=== PATIENT | female | born 1995 | race Caucasian/White ===

== ENCOUNTER → 2020-07-27 | Outpatient (CLI) | payer OTHER ==
[~2020-07-27] MED LIST: ALBUTEROL0.09 MG/AC IH; AMOXIL500 MG PO; ASMANEX220 MCG INH; CIPRODEX 0.3%-7.5 ML OT; DONNATAL1 TAB PO; Miralax Powder255 GM PO; OMEPRAZOLE20 MG PO; PRILOSEC20 MG PO; VICODIN 5/500 505 MG PO
== END | disposition home or self-care (01) ==
LOC: COVID19 12:58
PROVIDERS: ATTEND Internal Medicine
DX: U07.1 COVID-19 (principal)

== ENCOUNTER 2024-01-06 10:24 | Emergency (ER) | payer OTHER ==
[~2024-01-06] VITALS: Wt 106.6 kg
[2024-01-06] MEDS ORDERED: SODIUM CHLORIDE 0.9% 1,000 ML IV ONE (11:05)
[2024-01-06 11:19] LABS: BILIRUBIN Negative (Negative); BLOOD Trace-Intact (Negative); CLARITY Clear (Clear); COLOR Yellow (Yellow); GLUCOSE Negative (Negative); KETONE 3+ (Negative); LEUKO ESTERASE Negative (Negative); NITRITE Negative (Negative)
[2024-01-06 11:32] LABS: BACTERIA 1+; MUCOUS 1+
[2024-01-06 11:53] LABS: HEMATOCRIT 44.9 % (37.0-47.0); MEAN CELL VOLUME 85.5 fl (81.0-99.0); MEAN CORPUSCULAR HGB 28.2 pg (27.0-31.0); MEAN PLATELET VOLUME 12.5 fl (9.6-12.3); PLATELET COUNT AUTOMATED 235 10*3/uL (130-400); RED BLOOD COUNT 5.25 10*6/uL (4.10-5.10); RED CELL DISTRI WIDTH 12.9 % (0-14.5); WHITE BLOOD COUNT 20.1 10*3/uL (4.8-10.8)
[2024-01-06 12:02] LABS: MANUAL DIFF REFLEX YES
[2024-01-06 12:33] LABS: TOTAL CELLS COUNTED 100 #CELLS
[2024-01-06 12:34] LABS: BURR CELLS FEW; MICROCYTOSIS SLIGHT; PLATELET SUFFICIENCY NORMAL (NORMAL)
[2024-01-06 12:54] LABS: LIPASE 32 U/L (12-53); TOTAL PROTEIN 5.6 gm/dL (6.0-8.0)
[2024-01-06 12:55] LABS: ALKALINE PHOSPHATASE 57 U/L (46-116); CHLORIDE 105 mmol/L (98-107); SGPT/ALT 14 U/L (5-49)
[2024-01-06 12:56] LABS: BETA-HCG, QUANT < 3.0 mIU/mL (3-10); BUN < 5 mg/dl (9-23)
[2024-01-06 12:58] LABS: ACT PARTIAL THROMBO TIME 29.6 SECONDS (20.0-32.1)
== END 2024-01-06 13:35 | disposition short-term general hospital (02) ==
LOC: ED 10:24
PROVIDERS: Internal Medicine
DX: G93.9 Disorder of brain, unspecified (principal); R41.82 Altered mental status, unspecified; Z88.2 Allergy status to sulfonamides